=== PATIENT | female | born 1990 | race Caucasian/White ===

== ENCOUNTER 2017-12-14 20:35 | Emergency (ER) | payer OTHER ==
[~2017-12-14] VITALS: Ht 157.5 cm; Wt 81.6 kg
[~2017-12-14 20:35] MED LIST: Colace 100MG PO; Mylicon 125MG PO; OXYC1TAB9 PO; PRENATE ADVANCE PO
== END 2017-12-14 23:04 | disposition home or self-care (01) ==
LOC: ER 20:35
DX: J06.9 Acute upper respiratory infection, unspecified (principal)

== ENCOUNTER 2018-09-17 11:58 | Emergency (ER) | payer OTHER ==
[~2018-09-17] VITALS: Ht 157.5 cm; Wt 83.9 kg
== END 2018-09-17 17:03 | disposition home or self-care (01) ==
LOC: ER 11:58
DX: M79.18 Myalgia, other site (principal)